=== PATIENT | female | born 1970 | race Caucasian/White ===

== ENCOUNTER 2023-06-11 06:08 | Observation (INO) | payer BC ==
[2023-06-09 13:16] LABS: HCG,QUAL RESULT NEGATIVE (NEGATIVE)
[~2023-06-11] VITALS: Ht 157.5 cm; Wt 83.0 kg
[2023-06-11] MEDS ORDERED: CEFAZOLIN SOD 2 GM in D5W 50 ML IV ONE (07:00)
[2023-06-11] MEDS: fentaNYL CITRATE/PF 100 MCG/2 ML AMP ONE ×2 (07:46→10:58)
[2023-06-11] MEDS: ACETAMINOPHEN I.V. 1000 MG 100 ML IV ONE (07:46)
[2023-06-11] MEDS: MIDAZOLAM HCL 2 MG/2 ML VIAL (VERSED) ONE (07:46)
[2023-06-11] MEDS ORDERED: CLINDAMYCIN 2% VAGINAL CREAM VG ONE (07:49)
[2023-06-11] MEDS ORDERED: ONDANSETRON HCL 4 MG/2 ML VIAL IVP PRN ×2 (08:30→10:30)
[2023-06-11] MEDS ORDERED: LR 1,000 ML IV ONE (08:30)
[2023-06-11] MEDS ORDERED: HYDROmorphone 1 MG/ML INJ. CARTRIDGE IVP PRN (08:30)
[2023-06-11] MEDS ORDERED: fentaNYL CITRATE/PF 100 MCG/2 ML AMP IVP PRN (08:30)
[2023-06-11] MEDS: fentaNYL CITRATE/PF 100 MCG/2 ML AMP IVP PRN (11:00)
[2023-06-11] MEDS: HYDROcodone/ACETAMIN 5-325 MG TAB (NORCO/ VICODIN) ONE (11:49)
[2023-06-11] MEDS: HYDROcodone/ACETAMIN 5-325 MG TAB (NORCO/ VICODIN) PO PRN (11:52)
[2023-06-11] MEDS ORDERED: OXYC-128 PO (14:15)
[2023-06-11] MEDS: OXYCODONE/ACETAMINOPHEN 5-325 TABLET ONE ×2 (14:31→16:51)
[2023-06-11] MEDS: OXYCODONE/ACETAMINOPHEN 5-325 TABLET PO PRN ×2 (14:34→23:30)
[2023-06-11] MEDS ORDERED: VITD2000 PO (18:15)
[2023-06-11] MEDS ORDERED: FER300L PO (18:15)
[2023-06-11] MEDS ORDERED: MAGN296S8 PO (18:15)
[2023-06-11] MEDS ORDERED: MULT-1089 PO (18:15)
[2023-06-11] MEDS ORDERED: MEDR10TA72 PO (18:15)
[2023-06-11] MEDS ORDERED: TRAZ-250 PO (18:15)
[2023-06-11 18:43] VITALS: BP_SYST 114; PULSE 78; RESP 16; TEMP 99; O2SAT 96
[2023-06-11 20:10] VITALS: BP_SYST 115; PULSE 77; RESP 20; TEMP 99; O2SAT 98
[2023-06-11] MEDS: ceFAZolin SODIUM 1 GM in D5W 50 ML IV SCH (21:04)
[2023-06-12 08:00] VITALS: BP_SYST 122; PULSE 72; RESP 18; TEMP 98.2; O2SAT 99
[2023-06-12] MEDS: PANTOPRAZOLE SODIUM 40 MG TAB PO ONE (12:10)
[2023-06-12 12:45] VITALS: BP_SYST 111; PULSE 75; RESP 18; TEMP 99.1; O2SAT 99
[2023-06-12 16:09] VITALS: BP_SYST 113; PULSE 76; RESP 16; TEMP 98.9; O2SAT 98
[2023-06-12 20:00] VITALS: BP_SYST 111; PULSE 71; RESP 18; TEMP 97.8; O2SAT 98
[2023-06-13] VITALS: BP_SYST 115; PULSE 68; RESP 18; TEMP 97.6; O2SAT 98
[2023-06-13 08:00] VITALS: O2SAT 98
[2023-06-13 12:33] VITALS: BP_SYST 101; PULSE 63; RESP 16; TEMP 97.7; O2SAT 98
== END 2023-06-13 14:38 | disposition home or self-care (01) ==
LOC: SDS 06:08 → SMU 06:09 → INTOOBSV 16:36 → SMU 18:30 → SDS 19:54
PROVIDERS: ADMIT Specialist; ATTEND Specialist
DX: D25.1 Intramural leiomyoma of uterus (principal); N80.03 Adenomyosis of the uterus; D25.9 Leiomyoma of uterus, unspecified; N39.3 Stress incontinence (female) (male); N92.1 Excessive and frequent menstruation with irregular cycle; N36.9 Urethral disorder, unspecified; G89.29 Other chronic pain; N94.12 Deep dyspareunia; I10 Essential (primary) hypertension; Z90.710 Acquired absence of both cervix and uterus; Z79.899 Other long term (current) drug therapy
CPT/HCPCS: 84703; 87081; 58552; 51992; 96365; 96375; 88307; 96366; J0690; J1100; J3490; J3465; J2710; J2405; J2370; J2704; J3010; J7060; J7120; G0378 ×3; C1727; C1771; J0131; J1940